=== PATIENT | male | born 1995 | race Caucasian/White ===

== ENCOUNTER 2020-10-29 18:56 | Emergency (ER) | payer OTHER ==
[~2020-10-29] VITALS: Ht 172.7 cm; Wt 86.2 kg
== END 2020-10-29 22:54 | disposition home or self-care (01) ==
LOC: ER 18:56
DX: R07.89 Other chest pain (principal); R00.2 Palpitations

== ENCOUNTER 2020-10-31 02:37 | Emergency (ER) | payer OTHER ==
[~2020-10-31] VITALS: Ht 172.7 cm; Wt 86.2 kg
== END 2020-10-31 08:00 | disposition home or self-care (01) ==
LOC: ER 02:37
DX: R07.89 Other chest pain (principal)